=== PATIENT | female | born 1975 | race Caucasian/White ===

== ENCOUNTER → 2017-09-22 | Outpatient (CLI) | payer BC ==
[~2017-09-22] MED LIST: JANUMET 1000 MG1 TA1 PO; KOMBIGLYZE XR 11 TER PO; LANTUS100 U/ML SC; LOPRESSOR 225 MG/TAB PO; TAMBOCOR 1100 MG/TAB PO; VICTOZA6 MG/ML SC
== END ==
LOC: COL.RAD 08:20
DX: K30 Functional dyspepsia (principal)
CPT/HCPCS: A9541

== ENCOUNTER 2018-05-15 15:31 | Emergency (ER) | payer BC ==
[~2018-05-15] VITALS: Ht 175.3 cm; Wt 127.3 kg
[2018-05-15 15:35] VITALS: TEMP 98.5
[2018-05-15] MEDS ORDERED: OMNICEF 300MG300 MG PO (16:06)
[2018-05-15] MEDS ORDERED: DOXYCYCLINE 10100 MG PO (16:06)
[2018-05-15] MEDS ORDERED: REGLAN 5MG T5 MG/TAB PO (16:25)
[2018-05-15] MEDS ORDERED: ZANTAC 300300 MG PO (16:26)
[2018-05-15] MEDS ORDERED: CYMBALTA 60MG60 MG PO (16:26)
[2018-05-15] MEDS ORDERED: CANA300T PO (16:26)
[2018-05-15] MEDS ORDERED: LASIX 20MG TABL20 MG PO (16:26)
[2018-05-15] MEDS ORDERED: BUSPIRONE HCL7.5 MG PO (16:26)
[2018-05-15] MEDS ORDERED: TRESIBA FL200 UNIT/1 SQ (16:27)
[2018-05-15 16:32] VITALS: BP 135/81; PULSE 98
== END 2018-05-15 16:40 | disposition home or self-care (01) ==
LOC: COL.ER 15:31
DX: L03.116 Cellulitis of left lower limb (principal); E10.9 Type 1 diabetes mellitus without complications; Z98.890 Other specified postprocedural states
CPT/HCPCS: J0696

== ENCOUNTER 2019-03-23 08:42 | Day surgery (SDC) | payer BC ==
[~2019-03-23 08:42] MED LIST changes: +BUSPIRONE HCL7.5 MG PO; +CANA300T PO; +CYMBALTA 60MG60 MG PO; +DOXYCYCLINE 10100 MG PO; +LASIX 20MG TABL20 MG PO; +OMNICEF 300MG300 MG PO; +REGLAN 5MG T5 MG/TAB PO; +TRESIBA FL200 UNIT/1 SQ; +ZANTAC 300300 MG PO
--- NOTE | 2019-03-23 09:55 | NUR ---
Patient was admitted to room 5 ambulatory and oriented to room. Gown on. Noted to have open area on the bottom of the left foot distal to the left toe. Area was firm to touch with small crack in the center of calloused area. Dr. Ramirez notified and surgery cancelled. Patient instructed to call to office tomorrow morning to arrange an appointment. Patient dismissed to home accompanied by family.
== END 2019-03-23 09:30 | disposition home or self-care (01) ==
LOC: SDCO 08:42
DX: M72.2 Plantar fascial fibromatosis (principal); M77.32 Calcaneal spur, left foot; M19.90 Unspecified osteoarthritis, unspecified site; I10 Essential (primary) hypertension; E11.9 Type 2 diabetes mellitus without complications; G43.909 Migraine, unspecified, not intractable, without status migrainosus; F32.9 Major depressive disorder, single episode, unspecified; I49.3 Ventricular premature depolarization; K31.84 Gastroparesis; K21.9 Gastro-esophageal reflux disease without esophagitis; E66.01 Morbid (severe) obesity due to excess calories; F41.9 Anxiety disorder, unspecified; Z68.37 Body mass index [BMI] 37.0-37.9, adult; Z90.49 Acquired absence of other specified parts of digestive tract; Z79.4 Long term (current) use of insulin; Z53.8 Procedure and treatment not carried out for other reasons; Z79.899 Other long term (current) drug therapy
CPT/HCPCS: J2250; J3010

== ENCOUNTER → 2019-08-02 | Outpatient (CLI) | payer BC | LOC: MC.RAD 15:26 | DX: Z12.31 Encounter for screening mammogram for malignant neoplasm of breast (principal) ==

== ENCOUNTER → 2019-12-09 | Outpatient (CLI) | payer BC ==
[2019-12-09 08:19] LABS: BASO % 0.3 % (0.0-2.0); EOS # 0.1 (0.0-0.7); EOS % 0.6 % (0-4.0); GRAN # 5.7 (1.4-6.5); GRAN % 71.6 % (42.2-75.2); HEMATOCRIT 45.3 % (37.0-47.0); HEMOGLOBIN 15.1 g/dl (12.5-16.0); LYMPH # 1.8 (1.2-3.4); LYMPH % 22.2 % (20.0-51.0); MEAN CELL VOLUME 88 fl (80.0-100.0); MEAN CORPUSCULAR HEMOGLOBIN 29 pg (27.0-31.0); MEAN CORPUSCULAR HGB CONC 33 g/dl (33.0-37.0); MEAN PLATELET VOLUME 10.1 fl (7.4-10.4); MONO # 0.4 (0.1-0.6); MONO % 4.8 % (1.7-9.3); PLATELET COUNT 149 K/mm3 (130-400); RED BLOOD COUNT 5.17 M/mm3 (4.10-5.30); REDCELL DISTRIBUTION WIDTH-CV 13.2 % (11.5-14.5)
[2019-12-09 09:40] LABS: ALBUMIN 4.1 gm/dL (3.5-5.0); BILIRUBIN,TOTAL 0.5 mg/dL (0.0-1.0); CALCIUM 9.1 mg/dL (8.4-10.2); CREATININE, serum 0.45 (0.52-1.25); POTASSIUM 3.9 mmol/L (3.4-5.0); TOTAL PROTEIN 7.9 gm/dL (6.4-8.2)
== END ==
LOC: COL.LAB 07:50
PROVIDERS: Family Medicine
DX: E87.1 Hypo-osmolality and hyponatremia (principal)

== ENCOUNTER 2020-02-17 15:47 | Emergency (ER) | payer BC ==
[~2020-02-17] VITALS: Ht 175.3 cm; Wt 91.8 kg
[2020-02-17 15:54] VITALS: TEMP 97.8
[2020-02-17 16:21] LABS: COLLECTION METHOD CLEAN CATCH
[2020-02-17 16:26] LABS: BASO % 0.3 % (0.0-2.0); EOS # 0.1 (0.0-0.7); EOS % 0.6 % (0-4.0); GRAN # 7.1 (1.4-6.5); GRAN % 72.3 % (42.2-75.2); HEMOGLOBIN 15.3 g/dl (12.5-16.0); LYMPH # 2.1 (1.2-3.4); LYMPH % 20.8 % (20.0-51.0); MEAN CELL VOLUME 86 fl (80.0-100.0); MEAN CORPUSCULAR HEMOGLOBIN 30 pg (27.0-31.0); MEAN CORPUSCULAR HGB CONC 35 g/dl (33.0-37.0); MONO # 0.6 (0.1-0.6); MONO % 5.7 % (1.7-9.3); PLATELET COUNT 222 K/mm3 (130-400); RED BLOOD COUNT 5.13 M/mm3 (4.10-5.30); REDCELL DISTRIBUTION WIDTH-CV 14.3 % (11.5-14.5)
[2020-02-17 16:42] LABS: MUCOUS Present /lpf; PH 6 (5-8); SQUAMOUS EPITHELIAL 0-2 /hpf; URINE APPEARANCE Hazy; URINE BACTERIA None Seen /hpf; URINE BILIRUBIN Positive (NEGATIVE); URINE BLOOD 2+ (NEGATIVE); URINE COLOR Yellow; URINE GLUCOSE Negative (NEGATIVE); URINE KETONE 2+ (NEGATIVE); URINE LEUKOCYTE ESTERASE Negative (NEGATIVE); URINE NITRATE Negative (NEGATIVE); URINE PROTEIN(semi-quant) 2+ (NEGATIVE); URINE RBC >50 /hpf
[2020-02-17 16:51] LABS: ALANINE AMINOTRANSFERASE 16 U/L (4-34); ALBUMIN 4.3 gm/dL (3.5-5.0); ALKALINE PHOSPHATASE 51 U/L (50-136); ANION GAP 15 mmol/L (7-16); AST,SGOT 21 U/L (15-37); BILIRUBIN,TOTAL 0.8 mg/dL (0.0-1.0); BLOOD UREA NITROGEN 14 mg/dL (7-17); C-REACTIVE PROTEIN 2.3 mg/dL (0.0-0.9); CALCIUM 9.4 mg/dL (8.4-10.2); CARBON DIOXIDE 22 mmol/L (22-30); CHLORIDE 99 mmol/L (98-107); CREATININE, serum 0.54 (0.52-1.25); GLUCOSE 203 mg/dL (74-106); LIPASE 113 U/L (23-300); POTASSIUM 3.1 mmol/L (3.4-5.0); SODIUM 137 mmol/L (137-145); TOTAL PROTEIN 8.4 gm/dL (6.4-8.2)
[2020-02-17 17:14] LABS: TROPONIN-I < 0.012 ng/mL (0.000-0.035)
[2020-02-17] MEDS ORDERED: ZOFRAN 4MG T4 MG/TAB PO (19:04)
[2020-02-17] MEDS ORDERED: K-DUR20 MEQ PO (19:04)
[2020-02-17 20:00] VITALS: BP 118/70; PULSE 78
== END 2020-02-17 20:00 | disposition home or self-care (01) ==
LOC: COL.ER 15:47
PROVIDERS: Emergency Medicine
DX: R10.13 Epigastric pain (principal); E87.6 Hypokalemia; E11.9 Type 2 diabetes mellitus without complications; Z79.4 Long term (current) use of insulin; Z90.710 Acquired absence of both cervix and uterus; Z98.84 Bariatric surgery status
CPT/HCPCS: J2405; J7030; Q9967

== ENCOUNTER 2020-02-18 19:09 | Emergency (ER) | payer BC ==
[~2020-02-18] VITALS: Ht 175.3 cm; Wt 91.8 kg
[~2020-02-18 19:09] MED LIST changes: +K-DUR20 MEQ PO; +ZOFRAN 4MG T4 MG/TAB PO
[2020-02-18 19:30] VITALS: BP 113/77; TEMP 98.6
[2020-02-18 20:24] LABS: BASO % 0.3 % (0.0-2.0); EOS # 0.1 (0.0-0.7); EOS % 1.2 % (0-4.0); GRAN # 4.7 (1.4-6.5); GRAN % 69.9 % (42.2-75.2); HEMATOCRIT 39.6 % (37.0-47.0); HEMOGLOBIN 13.7 g/dl (12.5-16.0); LYMPH # 1.6 (1.2-3.4); MEAN CELL VOLUME 86 fl (80.0-100.0); MEAN CORPUSCULAR HEMOGLOBIN 30 pg (27.0-31.0); MEAN CORPUSCULAR HGB CONC 35 g/dl (33.0-37.0); MONO # 0.3 (0.1-0.6); PLATELET COUNT 197 K/mm3 (130-400); REDCELL DISTRIBUTION WIDTH-CV 14.4 % (11.5-14.5)
[2020-02-18 20:37] LABS: ALBUMIN 3.7 gm/dL (3.5-5.0); BILIRUBIN,TOTAL 0.6 mg/dL (0.0-1.0); CALCIUM 9.1 mg/dL (8.4-10.2); CREATININE, serum 0.45 (0.52-1.25); POTASSIUM 3.5 mmol/L (3.4-5.0); TOTAL PROTEIN 7.4 gm/dL (6.4-8.2)
[2020-02-18 22:07] VITALS: PULSE 82
== END 2020-02-18 22:08 | disposition home or self-care (01) ==
LOC: COL.ER 19:09
PROVIDERS: Physician Assistant
DX: R10.33 Periumbilical pain (principal); E11.9 Type 2 diabetes mellitus without complications; Z79.4 Long term (current) use of insulin; Z90.49 Acquired absence of other specified parts of digestive tract; Z98.890 Other specified postprocedural states
CPT/HCPCS: J2550; J7030

== ENCOUNTER 2020-02-29 18:06 | Inpatient (IN) | payer BC ==
[~2020-02-29] VITALS: Ht 175.3 cm; Wt 88.3 kg
[2020-02-29 18:48] LABS: BASO % 0.1 % (0.0-2.0); EOS # 0.1 (0.0-0.7); EOS % 0.8 % (0-4.0); GRAN # 5.9 (1.4-6.5); GRAN % 76.1 % (42.2-75.2); HEMATOCRIT 37.1 % (37.0-47.0); HEMOGLOBIN 13.3 g/dl (12.5-16.0); LYMPH # 1.3 (1.2-3.4); LYMPH % 16.4 % (20.0-51.0); MEAN CELL VOLUME 84 fl (80.0-100.0); MEAN CORPUSCULAR HEMOGLOBIN 30 pg (27.0-31.0); MEAN CORPUSCULAR HGB CONC 36 g/dl (33.0-37.0); MEAN PLATELET VOLUME 10.5 fl (7.4-10.4); MONO # 0.5 (0.1-0.6); MONO % 6.2 % (1.7-9.3); PLATELET COUNT 203 K/mm3 (130-400); RED BLOOD COUNT 4.44 M/mm3 (4.10-5.30); REDCELL DISTRIBUTION WIDTH-CV 14.8 % (11.5-14.5)
[2020-02-29 18:57] LABS: ALBUMIN 3.5 gm/dL (3.5-5.0); BILIRUBIN,TOTAL 0.9 mg/dL (0.0-1.0); CALCIUM 8.9 mg/dL (8.4-10.2); CREATININE, serum 0.44 (0.52-1.25); TOTAL PROTEIN 7.1 gm/dL (6.4-8.2)
[2020-02-29 19:10] LABS: POTASSIUM 2.3 mmol/L (3.4-5.0)
[2020-02-29 19:30] LABS: MAGNESIUM 1.7 mg/dL (1.6-2.3); PHOSPHOROUS 3.2 mg/dL (2.5-4.5)
[2020-02-29] MEDS ORDERED: CARAFATE 1GM1 G PO (20:28)
[2020-02-29] MEDS ORDERED: PRILOSEC 20MG20 MG PO (20:29)
[2020-02-29] MEDS ORDERED: MAG-OX 400400 MG/TAB PO (20:30)
[2020-02-29] MEDS ORDERED: TOPROL XL 25MG25 MG PO (20:32)
[2020-02-29 21:39] VITALS: BP 138/77; PULSE 67; TEMP 98.2
--- NOTE | 2020-02-29 22:02 | NUR ---
Pt arrived to medical floor from ED. Pt alert and oriented x4. Pt oriented to room and call light. VSS. Complaints of 8/10 upper abdominal pain that pt describes as intermittent pressure. Pt also states she is experiencing nausea at this time. IVF infusing per orders to right AC IV site. Small, depressed, red ulcer to pts right great toe with surrounding erythema. Pt denies any other needs at this time. Call light within reach.
[2020-03-01 00:43] VITALS: BP 118/63; PULSE 70; TEMP 98.3
[2020-03-01 04:00] VITALS: BP 134/61; PULSE 69; TEMP 98.4
--- NOTE | 2020-03-01 06:14 | NUR ---
Pt awake most of the night. PRN phenergan given twice for nausea. PRN dilaudid given twice for upper abdominal pain. IVF infusing per orders to right AC IV. Telemetry on. Pt denies any other needs.
[2020-03-01 07:35] VITALS: BP 125/66; PULSE 66; TEMP 98.3
--- NOTE | 2020-03-01 08:05 | NUR ---
Pt awake and alert this morning, currently NPO, medications were given with sip of water. no C/O pain at this time Pt does have some C/O nausea without vomiting. Shift assessments compleyte, left Pt call light in reach, bed in lowest position.
[2020-03-01 08:39] LABS: CALCIUM 8.2 mg/dL (8.4-10.2); CREATININE, serum 0.45 (0.52-1.25)
[2020-03-01 08:48] LABS: POTASSIUM 2.8 mmol/L (3.4-5.0)
--- NOTE | 2020-03-01 13:05 | NUR ---
Pt has C/O pain 02/02, medications given for relief
--- NOTE | 2020-03-01 13:30 | NUR ---
BOO met with the patient to discuss discharge plan. The patient lives in [place] with her , Rasta ([id number]#[phone]), and children. She reports independence with ADLs and has a showerchair available to her, if needed. The patient's PCP is Dr. Esmer Rivera and she receives her medications at [facility]. She reports no difficulties obtaining her meds. The patient does not have advanced directives and she was not interested in completing a DPOA-HC at this time. The patient plans to return home with her family upon discharge. No additional needs at this time.
[2020-03-01 16:41] VITALS: BP 124/61; PULSE 66; TEMP 97.3
--- NOTE | 2020-03-01 19:10 | NUR ---
Pt resting in the room, has had some C/O pain during the day. EGD completed this morning, post op vitals remained stable.
[2020-03-01 19:24] VITALS: BP 132/63; PULSE 68; TEMP 99
--- NOTE | 2020-03-01 20:13 | NUR ---
Assessment complete at this time. Patient complains of nausea and pain level 6/10 in abdomen. PRN dilaudid 0.25 and phenergan administered for this. Heart sounds are normal/regular and lungs are clear. Bowel sounds are audible in all quadrants but hypoactive. Patient states her last bowel movement was two days ago. Will continue to monitor.
--- NOTE | 2020-03-01 23:00 | NUR ---
Potassium lab 2.8 at this time. Protocol initiated IV route. Will continue to monitor.
[2020-03-02] VITALS (7 sets, daily range): BP systolic 119–143; BP diastolic 55–76; PULSE 63–73; TEMP 97.9–99.6
--- NOTE | 2020-03-02 05:37 | NUR ---
Tonight, we have managed patient's pain with IV dilaudid and replaced potassium with IV potassium. Will recheck potassium level after last bag of fluid. No new concerns, will continue to monitor.
--- NOTE | 2020-03-02 08:41 | NUR ---
Pt awake and alert this morning, no C/O pain at this time, has some C/O nausea. sHIFT ASSESSMENTS COMPLETE, LEFT pT CALL LIGHT IN REACH, BED IN LOWEST POSITION.
[2020-03-02 09:22] LABS: MEAN CELL VOLUME 87 fl (80.0-100.0); MEAN CORPUSCULAR HGB CONC 35 g/dl (33.0-37.0); MEAN PLATELET VOLUME 10.8 fl (7.4-10.4); PLATELET COUNT 136 K/mm3 (130-400); RED BLOOD COUNT 3.69 M/mm3 (4.10-5.30); REDCELL DISTRIBUTION WIDTH-CV 15.1 % (11.5-14.5)
[2020-03-02 09:24] LABS: HEMOGLOBIN 11.1 g/dl (12.5-16.0); MEAN CORPUSCULAR HEMOGLOBIN 30 pg (27.0-31.0)
[2020-03-02 09:39] LABS: ALBUMIN 2.8 gm/dL (3.5-5.0); BILIRUBIN,TOTAL 0.6 mg/dL (0.0-1.0); CALCIUM 8.1 mg/dL (8.4-10.2); CREATININE, serum 0.39 (0.52-1.25); MAGNESIUM 1.4 mg/dL (1.6-2.3); POTASSIUM 3.4 mmol/L (3.4-5.0)
--- NOTE | 2020-03-03 02:28 | NUR ---
Pt assessment completed, charted, alert, oriented, roomair, independent. Meds provided as per SEP, tolerated well. Pt complained of nausea, PRN antiemetic provided. Helped settled on her bed, call light on reach. No further needs at this time.
[2020-03-03 03:51] VITALS: BP 150/73; PULSE 67; TEMP 97.7
--- NOTE | 2020-03-03 06:33 | NUR ---
Pt had an uneventful night, slept through out the night. Morning meds provided as per SEP. No further needs at this time.
[2020-03-03 06:57] LABS: BASO % 0.3 % (0.0-2.0); EOS % 1.1 % (0-4.0); GRAN # 1.7 (1.4-6.5); GRAN % 47.4 % (42.2-75.2); HEMOGLOBIN 11.6 g/dl (12.5-16.0); LYMPH # 1.6 (1.2-3.4); LYMPH % 44.8 % (20.0-51.0); MEAN CELL VOLUME 87 fl (80.0-100.0); MEAN CORPUSCULAR HEMOGLOBIN 30 pg (27.0-31.0); MEAN CORPUSCULAR HGB CONC 34 g/dl (33.0-37.0); MONO # 0.2 (0.1-0.6); MONO % 6.1 % (1.7-9.3); PLATELET COUNT 126 K/mm3 (130-400); RED BLOOD COUNT 3.92 M/mm3 (4.10-5.30)
[2020-03-03 07:13] LABS: ALBUMIN 3.1 gm/dL (3.5-5.0); BILIRUBIN,TOTAL 0.6 mg/dL (0.0-1.0); CALCIUM 8.4 mg/dL (8.4-10.2); CREATININE, serum 0.37 (0.52-1.25); MAGNESIUM 1.3 mg/dL (1.6-2.3); PHOSPHOROUS 2.5 mg/dL (2.5-4.5); POTASSIUM 3.1 mmol/L (3.4-5.0); TOTAL PROTEIN 6.3 gm/dL (6.4-8.2)
[2020-03-03 07:35] LABS: HEMATOCRIT 34.1 % (37.0-47.0)
[2020-03-03 08:01] VITALS: BP 140/69; PULSE 64; TEMP 98.1
--- NOTE | 2020-03-03 08:57 | NUR ---
Patient sitting up on edge of bed attempting to eat breakfast. States she did have nausea after a bite of breakfast. Denies nausea currently. Patient on potassium protocol, states she is not able to tolerate Oral potassium therefore changed to IV KCL. Tele in place. Denies further needs at this time. INT to left AC with fluids infusing per orders. IV covered for shower this AM.
--- NOTE | 2020-03-03 10:06 | NUR ---
Patient showered, tele placed back on patient. No further needs at this time.
--- NOTE | 2020-03-03 11:48 | NUR ---
Patient had emisis after attempting to take PO potassium tab, thinks its due to size of tab. Cut tab to smaller size patient will attempt to take once stomach settles down.
[2020-03-03 11:59] VITALS: BP 150/70; PULSE 68; TEMP 97.6
--- NOTE | 2020-03-03 13:22 | NUR ---
Patient states she was able to take KCL tab. Also tolerating lunch without nausea
[2020-03-03 16:28] VITALS: BP 119/67; PULSE 61; TEMP 98.1
--- NOTE | 2020-03-03 17:50 | NUR ---
Patient has done well throughout the day. Independent in room. Spouse at bedside this afternoon. Denies pain throughout the day. Occassional nausea during meals, not requiring nausea meds. Restarted IV to right forarm due to leaking IV in left AC, x1 attempt. Showered this AM. Denies further needs at this time. Will report off to shift mgr
[2020-03-03 20:16] VITALS: BP 139/71; PULSE 66; TEMP 98.4
--- NOTE | 2020-03-03 20:30 | NUR ---
PT resting in bed, complaining of burning at IV site. This RN flushed the site and no swelling, leaking or bleeding noted. But did note that IV pump was beeping indicating that primary fluid, NS was stopped due to total fluid volume being completed, leaving potassium running on its own; flushed the line with new bag of NS to dilute the potassium. PT stated that it felt much better after doing this. Will continue to monitor.
[2020-03-03 23:43] VITALS: BP 133/61; PULSE 64; TEMP 97.7
[2020-03-04 03:51] VITALS: BP 125/63; PULSE 70; TEMP 97.3
[2020-03-04 07:37] VITALS: BP 143/68; PULSE 79; TEMP 98.1
[2020-03-04 08:27] LABS: BASO % 0.3 % (0.0-2.0); EOS # 0.1 (0.0-0.7); EOS % 1.3 % (0-4.0); GRAN # 1.8 (1.4-6.5); GRAN % 45.4 % (42.2-75.2); HEMOGLOBIN 10.6 g/dl (12.5-16.0); LYMPH # 1.8 (1.2-3.4); MEAN CELL VOLUME 87 fl (80.0-100.0); MEAN CORPUSCULAR HEMOGLOBIN 30 pg (27.0-31.0); MEAN CORPUSCULAR HGB CONC 34 g/dl (33.0-37.0); MEAN PLATELET VOLUME 11.3 fl (7.4-10.4); MONO # 0.3 (0.1-0.6); MONO % 7.7 % (1.7-9.3); PLATELET COUNT 126 K/mm3 (130-400); RED BLOOD COUNT 3.56 M/mm3 (4.10-5.30)
[2020-03-04 08:49] LABS: ANION GAP 7 mmol/L (7-16); CALCIUM 7.8 mg/dL (8.4-10.2); CARBON DIOXIDE 31 mmol/L (22-30); CHLORIDE 97 mmol/L (98-107); CREATININE, serum 0.35 (0.52-1.25); GLUCOSE 135 mg/dL (74-106); MAGNESIUM 1.6 mg/dL (1.6-2.3); SODIUM 135 mmol/L (137-145)
[2020-03-04 08:51] LABS: BLOOD UREA NITROGEN < 2 mg/dL (7-17); POTASSIUM 2.8 mmol/L (3.4-5.0)
--- NOTE | 2020-03-04 11:18 | NUR ---
CARE HANDED OFF TO LATRICE DURAND @ 6205. BEDSIDE
[2020-03-04 11:52] VITALS: BP 133/75; PULSE 69; TEMP 98.1
--- NOTE | 2020-03-04 12:38 | NUR ---
Patient sitting up in bed watching TV. Had previous reports of nausea, which has resolved. A&Ox3. VSS. IV CDI, potassium infusing. Patient reporting burning at IV site r/t infusion. Nurse aware and IV mode adjusted. No further needs expressed from patient. Call light within reach.
[2020-03-04 14:06] LABS: ANION GAP 7 mmol/L (7-16); BLOOD UREA NITROGEN < 2 mg/dL (7-17); CALCIUM 8.1 mg/dL (8.4-10.2); CARBON DIOXIDE 31 mmol/L (22-30); CHLORIDE 95 mmol/L (98-107); CREATININE, serum 0.35 (0.52-1.25); GLUCOSE 188 mg/dL (74-106); POTASSIUM 3.6 mmol/L (3.4-5.0); SODIUM 133 mmol/L (137-145)
[2020-03-04] MEDS ORDERED: PHENERGAN 25 TA25 MG PO (15:29)
[2020-03-04] MEDS ORDERED: BACTRIM DS 8001 TAB PO (15:30)
[2020-03-04] MEDS ORDERED: ZOFRAN ODT4 MG PO (15:31)
[2020-03-04] MEDS ORDERED: K-TAB20 PO (15:33)
[2020-03-04 16:51] VITALS: BP 134/76; PULSE 71; TEMP 97.4
--- NOTE | 2020-03-04 17:11 | NUR ---
Discharge paperwork reviewed with patient. Patient verbalized an understanding to follow doctors orders. IV removed, tip intact. Gauze and coban applied, patient tolerated well. Patient voiced concerns about feeling like she was "drunk" when she got up and sat back down. Nurse informed/encouraged patient to increase PO intake of water and food, going home and relaxing/resting as much as possible and to get up slowly and take her time moving around. Patient verbalized an understanding. No further needs expressed from the patient. Patient transfered by wheelchair to vehicle outside. Personal belongings and discharge paperwork with patient.
== END 2020-03-04 17:00 | disposition home or self-care (01) | DRG 392 ==
LOC: COL.ER 18:06 → MEDICAL 20:16
PROVIDERS: Internal Medicine Gastroenterology; Physician Assistant; ADMIT Family Medicine
PROC: 0DJ08ZZ Inspection of Upper Intestinal Tract, Via Natural or Artificial Opening Endoscopic (ICD-10-PCS; principal; 2020-03-01 11:00)
DX: R10.13 Epigastric pain (principal); E86.0 Dehydration; K27.9 Peptic ulcer, site unspecified, unspecified as acute or chronic, without hemorrhage or perforation; E11.622 Type 2 diabetes mellitus with other skin ulcer; L97.519 Non-pressure chronic ulcer of other part of right foot with unspecified severity; L03.031 Cellulitis of right toe; R63.0 Anorexia; K21.0 Gastro-esophageal reflux disease with esophagitis; K28.7 Chronic gastrojejunal ulcer without hemorrhage or perforation; Z90.49 Acquired absence of other specified parts of digestive tract; Z98.84 Bariatric surgery status; Z98.51 Tubal ligation status
CPT/HCPCS: 99233-AI; 99239; C9113; G0378; J1170; J1815; J2405; J2550; J2704; J3475; J3480; J7030

== ENCOUNTER 2020-03-09 14:28 | Outpatient (CLI) | payer BC ==
[~2020-03-09] VITALS: Ht 175.3 cm; Wt 86.2 kg
[~2020-03-09 14:28] MED LIST changes: +BACTRIM DS 8001 TAB PO; +CARAFATE 1GM1 G PO; +K-TAB20 PO; +MAG-OX 400400 MG/TAB PO; +PHENERGAN 25 TA25 MG PO; +PRILOSEC 20MG20 MG PO; +TOPROL XL 25MG25 MG PO; +ZOFRAN ODT4 MG PO
[2020-03-09 15:00] VITALS: BP 127/65; PULSE 93; TEMP 97.7
[2020-03-09 16:54] LABS: ALBUMIN 3.4 gm/dL (3.5-5.0); BILIRUBIN,TOTAL 0.7 mg/dL (0.0-1.0); CALCIUM 8.9 mg/dL (8.4-10.2); CREATININE, serum 0.63 (0.52-1.25); MAGNESIUM 1.9 mg/dL (1.6-2.3); POTASSIUM 4.9 mmol/L (3.4-5.0); TOTAL PROTEIN 6.9 gm/dL (6.4-8.2)
== END 2020-03-09 17:58 | disposition home or self-care (01) ==
LOC: EUO 14:28
PROVIDERS: Family Medicine
DX: Z01.89 Encounter for other specified special examinations (principal)
CPT/HCPCS: J7030

== ENCOUNTER → 2020-03-12 | Outpatient (CLI) | payer BC ==
[~2020-03-12] VITALS: Ht 175.3 cm; Wt 86.9 kg
[2020-03-12 14:53] VITALS: BP 108/70; PULSE 100
== END ==
LOC: DIA.ED 10:29 → LIGHT 10:29
DX: E66.8 Other obesity (principal); Z98.84 Bariatric surgery status; E11.9 Type 2 diabetes mellitus without complications
CPT/HCPCS: G0463

== ENCOUNTER → 2020-03-16 | Outpatient (CLI) | payer BC | LOC: COL.RAD 08:53 | DX: R11.10 Vomiting, unspecified (principal); R10.9 Unspecified abdominal pain; Z98.84 Bariatric surgery status ==

== ENCOUNTER 2020-03-22 15:18 | Emergency (ER) | payer BC ==
[~2020-03-22] VITALS: Ht 175.3 cm; Wt 89.5 kg
[2020-03-22 15:24] VITALS: TEMP 97.7
[2020-03-22 16:30] LABS: BASO % 0.4 % (0.0-2.0); EOS # 0.1 (0.0-0.7); EOS % 0.9 % (0-4.0); GRAN # 4.5 (1.4-6.5); GRAN % 57.1 % (42.2-75.2); HEMATOCRIT 34.3 % (37.0-47.0); HEMOGLOBIN 11.3 g/dl (12.5-16.0); LYMPH % 37.3 % (20.0-51.0); MEAN CELL VOLUME 93 fl (80.0-100.0); MEAN CORPUSCULAR HEMOGLOBIN 31 pg (27.0-31.0); MEAN CORPUSCULAR HGB CONC 33 g/dl (33.0-37.0); MEAN PLATELET VOLUME 11.2 fl (7.4-10.4); MONO # 0.3 (0.1-0.6); MONO % 3.8 % (1.7-9.3); PLATELET COUNT 189 K/mm3 (130-400); RED BLOOD COUNT 3.68 M/mm3 (4.10-5.30); REDCELL DISTRIBUTION WIDTH-CV 17.1 % (11.5-14.5)
[2020-03-22] MEDS ORDERED: REGLAN 5MG T5 MG/TAB PO (16:33)
[2020-03-22 16:44] LABS: ALBUMIN 3.2 gm/dL (3.5-5.0); BILIRUBIN,TOTAL 0.4 mg/dL (0.0-1.0); CALCIUM 8.5 mg/dL (8.4-10.2); CREATININE, serum 0.91 (0.52-1.25); MAGNESIUM 1.8 mg/dL (1.6-2.3); POTASSIUM 4.3 mmol/L (3.4-5.0); TOTAL PROTEIN 6.5 gm/dL (6.4-8.2)
[2020-03-22] MEDS ORDERED: ATIVAN 0.50.5 MG/TAB PO (18:09)
[2020-03-22 18:42] VITALS: BP 116/80; PULSE 76
== END 2020-03-22 18:42 | disposition home or self-care (01) ==
LOC: COL.ER 15:18
PROVIDERS: Emergency Medicine
DX: M62.838 Other muscle spasm (principal); E11.9 Type 2 diabetes mellitus without complications; Z98.84 Bariatric surgery status; Z79.84 Long term (current) use of oral hypoglycemic drugs
CPT/HCPCS: J2060

== ENCOUNTER → 2020-09-13 | Outpatient (CLI) | payer BC ==
[~2020-09-13] MED LIST changes: +ATIVAN 0.50.5 MG/TAB PO
== END ==
LOC: MC.RAD 16:33
DX: Z12.31 Encounter for screening mammogram for malignant neoplasm of breast (principal)

== ENCOUNTER 2021-06-25 08:30 | Outpatient (RCR) | payer BC ==
[2021-05-14] VITALS (7 sets, daily range): BP systolic 125–139; BP diastolic 74–84; PULSE 72–80; TEMP 98.2
[2021-05-14 11:43] LABS: BASO % 0.4 % (0.0-2.0); EOS # 0.1 K/mm3 (0.0-0.7); EOS % 0.8 % (0-4.0); GRAN # 5.6 K/mm3 (1.4-6.5); GRAN % 62.5 % (42.2-75.2); HEMOGLOBIN 11.9 g/dl (12.5-16.0); LYMPH # 2.8 K/mm3 (1.2-3.4); LYMPH % 31.7 % (20.0-51.0); MEAN CELL VOLUME 93 fl (80.0-100.0); MEAN CORPUSCULAR HEMOGLOBIN 32 pg (27.0-31.0); MEAN CORPUSCULAR HGB CONC 34 g/dl (33.0-37.0); MEAN PLATELET VOLUME 10.3 fl (7.4-10.4); MONO # 0.3 K/mm3 (0.1-0.6); MONO % 3.6 % (1.7-9.3); PLATELET COUNT 218 K/mm3 (130-400); RED BLOOD COUNT 3.77 M/mm3 (4.10-5.30); REDCELL DISTRIBUTION WIDTH-CV 13.2 % (11.5-14.5)
[2021-05-14 11:46] LABS: HEMATOCRIT 34.9 % (37.0-47.0)
[2021-05-14 11:56] LABS: ALBUMIN 3.1 gm/dL (3.5-5.0); BILIRUBIN,TOTAL 0.3 mg/dL (0.2-1.2); C-REACTIVE PROTEIN 0.3 mg/dL (0.00-0.50); CALCIUM 8.5 mg/dL (8.4-10.2); CREATININE, serum 0.65 mg/dL (0.57-1.11); TOTAL PROTEIN 6.3 gm/dL (6.2-8.1)
[2021-05-14 12:11] LABS: ERYTHROCYTE SEDIMENTATION RATE 24 mm/hr (0-20)
--- NOTE | 2021-05-14 13:15 | NUR ---
PICC intact right upper arm with sterile dressing change done due to moderate amount of reddish drainage noted. no further drainage noted.
--- NOTE | 2021-05-14 15:25 | NUR ---
Itching resolved following 25mg of benadryl. Pt had c/o mild nausea. It resolved after eating some crackers, and she has denied need for nausea medication. She's continued to deny respiratory symptoms, and respirations remain even and unlabored. No rash or hives noted. Home treatment with PO benadryl discussed with pt for breakthrough symptoms, as well as ED return precautions if symptoms worsen or are uncontrolled. She expresses understanding. Gait steady in room. She is able to ambulate out from dept with steady gait. She will return tomorrow for dressing change, PICC dressing is currently clean, dry and intact, and for initial dose of next abx perscribed.
[2021-05-15 10:50] LABS: BASO % 0.4 % (0.0-2.0); EOS # 0.1 K/mm3 (0.0-0.7); GRAN # 3.7 K/mm3 (1.4-6.5); GRAN % 52.2 % (42.2-75.2); HEMOGLOBIN 12.4 g/dl (12.5-16.0); LYMPH % 41.7 % (20.0-51.0); MEAN CELL VOLUME 93 fl (80.0-100.0); MEAN CORPUSCULAR HEMOGLOBIN 31 pg (27.0-31.0); MEAN CORPUSCULAR HGB CONC 34 g/dl (33.0-37.0); MEAN PLATELET VOLUME 10.4 fl (7.4-10.4); MONO # 0.3 K/mm3 (0.1-0.6); MONO % 4.4 % (1.7-9.3); PLATELET COUNT 210 K/mm3 (130-400); RED BLOOD COUNT 3.98 M/mm3 (4.10-5.30); REDCELL DISTRIBUTION WIDTH-CV 13.1 % (11.5-14.5)
[2021-05-15 10:53] LABS: HEMATOCRIT 36.8 % (37.0-47.0)
[2021-05-15 11:01] LABS: ALBUMIN 3.1 gm/dL (3.5-5.0); BILIRUBIN,TOTAL 0.3 mg/dL (0.2-1.2); CALCIUM 8.9 mg/dL (8.4-10.2); CREATININE, serum 0.63 mg/dL (0.57-1.11); POTASSIUM 4.2 mmol/L (3.5-4.5); TOTAL PROTEIN 6.4 gm/dL (6.2-8.1)
[2021-05-15 11:02] VITALS: BP 127/85; PULSE 72; TEMP 98.5
[2021-05-15 11:14] LABS: ERYTHROCYTE SEDIMENTATION RATE 14 mm/hr (0-20)
--- NOTE | 2021-05-15 12:22 | NUR ---
Pt reports symptoms of itching are 'getting better."
[2021-05-21 08:19] VITALS: BP 126/74; PULSE 70; TEMP 98.2
[2021-05-21 08:31] LABS: BASO % 0.5 % (0.0-2.0); EOS # 0.1 K/mm3 (0.0-0.7); GRAN # 3.9 K/mm3 (1.4-6.5); GRAN % 64.9 % (42.2-75.2); HEMOGLOBIN 12.3 g/dl (12.5-16.0); LYMPH # 1.6 K/mm3 (1.2-3.4); LYMPH % 27.2 % (20.0-51.0); MEAN CELL VOLUME 93 fl (80.0-100.0); MEAN CORPUSCULAR HEMOGLOBIN 32 pg (27.0-31.0); MEAN CORPUSCULAR HGB CONC 34 g/dl (33.0-37.0); MEAN PLATELET VOLUME 10.4 fl (7.4-10.4); MONO # 0.3 K/mm3 (0.1-0.6); MONO % 5.1 % (1.7-9.3); PLATELET COUNT 209 K/mm3 (130-400)
--- NOTE | 2021-05-21 08:40 | NUR ---
Here for PICC cares. micro bore tubing present with no cap on end just a green end cap present. patient reported that she cleanses the hub with an alcohol swab prior to flushing. concern that this is not a closed system and risk of infection. she reports "no caps were sent with supplies." advised to bring micro bore tubing with her when she comes for cares. refused to have a macro bore tubing applied. cap given and instructed on how to flush it before leslie on the end of tubing. sterile PICC dressing change done. voiced understanding of instructions. to return next week for cares. voiced understanding of instructions.
[2021-05-21 08:42] LABS: HEMATOCRIT 36.4 % (37.0-47.0)
[2021-05-21 08:46] LABS: ALBUMIN 3.2 gm/dL (3.5-5.0); BILIRUBIN,TOTAL 0.4 mg/dL (0.2-1.2); CALCIUM 8.6 mg/dL (8.4-10.2); CREATININE, serum 0.7 mg/dL (0.57-1.11); POTASSIUM 4.3 mmol/L (3.5-4.5); TOTAL PROTEIN 6.7 gm/dL (6.2-8.1)
[2021-05-21 09:24] LABS: ERYTHROCYTE SEDIMENTATION RATE 12 mm/hr (0-20)
[2021-05-28 08:19] LABS: BASO # 0.1 K/mm3 (0.0-0.2); BASO % 0.7 % (0.0-2.0); EOS # 0.1 K/mm3 (0.0-0.7); EOS % 1.1 % (0-4.0); GRAN # 4.4 K/mm3 (1.4-6.5); GRAN % 62.3 % (42.2-75.2); HEMATOCRIT 34.5 % (37.0-47.0); HEMOGLOBIN 11.7 g/dl (12.5-16.0); LYMPH # 2.2 K/mm3 (1.2-3.4); LYMPH % 30.9 % (20.0-51.0); MEAN CELL VOLUME 94 fl (80.0-100.0); MEAN CORPUSCULAR HEMOGLOBIN 32 pg (27.0-31.0); MEAN CORPUSCULAR HGB CONC 34 g/dl (33.0-37.0); MEAN PLATELET VOLUME 10.6 fl (7.4-10.4); MONO # 0.3 K/mm3 (0.1-0.6); MONO % 4.7 % (1.7-9.3); PLATELET COUNT 158 K/mm3 (130-400); RED BLOOD COUNT 3.69 M/mm3 (4.10-5.30); REDCELL DISTRIBUTION WIDTH-CV 13.2 % (11.5-14.5)
[2021-05-28 08:20] VITALS: BP 144/76; PULSE 63; TEMP 98.2
[2021-05-28 08:35] LABS: BILIRUBIN,TOTAL 0.3 mg/dL (0.2-1.2); CALCIUM 8.4 mg/dL (8.4-10.2); CREATININE, serum 0.67 mg/dL (0.57-1.11); POTASSIUM 3.9 mmol/L (3.5-4.5); TOTAL PROTEIN 6.4 gm/dL (6.2-8.1)
[2021-05-28 08:48] LABS: ERYTHROCYTE SEDIMENTATION RATE 14 mm/hr (0-20)
[2021-06-04 08:27] VITALS: BP 101/78; PULSE 82; TEMP 98.2
[2021-06-04 08:43] LABS: BASO % 0.4 % (0.0-2.0); EOS # 0.2 K/mm3 (0.0-0.7); GRAN % 67.2 % (42.2-75.2); HEMATOCRIT 39.2 % (37.0-47.0); HEMOGLOBIN 13.1 g/dl (12.5-16.0); LYMPH # 1.9 K/mm3 (1.2-3.4); LYMPH % 25.1 % (20.0-51.0); MEAN CELL VOLUME 93 fl (80.0-100.0); MEAN CORPUSCULAR HEMOGLOBIN 31 pg (27.0-31.0); MEAN CORPUSCULAR HGB CONC 33 g/dl (33.0-37.0); MEAN PLATELET VOLUME 10.7 fl (7.4-10.4); MONO # 0.4 K/mm3 (0.1-0.6); PLATELET COUNT 173 K/mm3 (130-400); RED BLOOD COUNT 4.22 M/mm3 (4.10-5.30); REDCELL DISTRIBUTION WIDTH-CV 13.6 % (11.5-14.5)
[2021-06-04 08:58] LABS: ALBUMIN 3.1 gm/dL (3.5-5.0); BILIRUBIN,TOTAL 0.4 mg/dL (0.2-1.2); CALCIUM 9.3 mg/dL (8.4-10.2); CREATININE, serum 0.75 mg/dL (0.57-1.11); POTASSIUM 4.1 mmol/L (3.5-4.5); TOTAL PROTEIN 7.2 gm/dL (6.2-8.1)
[2021-06-04 09:22] LABS: ERYTHROCYTE SEDIMENTATION RATE 24 mm/hr (0-20)
[2021-06-11 08:20] VITALS: BP 121/80; PULSE 80; TEMP 98.6
[2021-06-11 08:32] LABS: BASO # 0.1 K/mm3 (0.0-0.2); BASO % 0.8 % (0.0-2.0); EOS # 0.1 K/mm3 (0.0-0.7); EOS % 2.1 % (0-4.0); GRAN # 4.4 K/mm3 (1.4-6.5); GRAN % 68.8 % (42.2-75.2); HEMATOCRIT 39.7 % (37.0-47.0); HEMOGLOBIN 13.7 g/dl (12.5-16.0); LYMPH # 1.5 K/mm3 (1.2-3.4); LYMPH % 23.5 % (20.0-51.0); MEAN CELL VOLUME 92 fl (80.0-100.0); MEAN CORPUSCULAR HEMOGLOBIN 32 pg (27.0-31.0); MEAN CORPUSCULAR HGB CONC 35 g/dl (33.0-37.0); MEAN PLATELET VOLUME 10.9 fl (7.4-10.4); MONO # 0.3 K/mm3 (0.1-0.6); MONO % 4.6 % (1.7-9.3); PLATELET COUNT 206 K/mm3 (130-400); RED BLOOD COUNT 4.34 M/mm3 (4.10-5.30); REDCELL DISTRIBUTION WIDTH-CV 12.9 % (11.5-14.5)
[2021-06-11 08:49] LABS: ALBUMIN 3.3 gm/dL (3.5-5.0); BILIRUBIN,TOTAL 0.4 mg/dL (0.2-1.2); CALCIUM 9.5 mg/dL (8.4-10.2); CREATININE, serum 0.83 mg/dL (0.57-1.11); POTASSIUM 4.5 mmol/L (3.5-4.5); TOTAL PROTEIN 7.4 gm/dL (6.2-8.1)
[2021-06-11 08:54] LABS: ERYTHROCYTE SEDIMENTATION RATE 15 mm/hr (0-20)
[2021-06-18 08:32] VITALS: BP 136/91; PULSE 83; TEMP 97.7
[2021-06-18 08:44] LABS: BASO % 0.7 % (0.0-2.0); EOS # 0.1 K/mm3 (0.0-0.7); EOS % 1.7 % (0-4.0); GRAN # 3.2 K/mm3 (1.4-6.5); GRAN % 54.8 % (42.2-75.2); HEMOGLOBIN 13.9 g/dl (12.5-16.0); LYMPH # 2.3 K/mm3 (1.2-3.4); LYMPH % 38.3 % (20.0-51.0); MEAN CELL VOLUME 88 fl (80.0-100.0); MEAN CORPUSCULAR HEMOGLOBIN 32 pg (27.0-31.0); MEAN CORPUSCULAR HGB CONC 36 g/dl (33.0-37.0); MEAN PLATELET VOLUME 10.7 fl (7.4-10.4); MONO # 0.3 K/mm3 (0.1-0.6); MONO % 4.3 % (1.7-9.3); PLATELET COUNT 188 K/mm3 (130-400); RED BLOOD COUNT 4.41 M/mm3 (4.10-5.30); REDCELL DISTRIBUTION WIDTH-CV 12.6 % (11.5-14.5)
[2021-06-18 08:55] LABS: ALBUMIN 3.3 gm/dL (3.5-5.0); BILIRUBIN,TOTAL 0.4 mg/dL (0.2-1.2); CALCIUM 9.4 mg/dL (8.4-10.2); CREATININE, serum 0.74 mg/dL (0.57-1.11); POTASSIUM 4.4 mmol/L (3.5-4.5); TOTAL PROTEIN 7.1 gm/dL (6.2-8.1)
[2021-06-18 09:03] LABS: ERYTHROCYTE SEDIMENTATION RATE 7 mm/hr (0-20)
[~2021-06-25] VITALS: Ht 175.3 cm; Wt 91.4 kg
[2021-06-25 08:14] VITALS: BP 137/83; PULSE 75; TEMP 98.5
[2021-06-25 08:27] LABS: BASO % 0.7 % (0.0-2.0); EOS # 0.1 K/mm3 (0.0-0.7); EOS % 1.3 % (0-4.0); GRAN # 3.7 K/mm3 (1.4-6.5); HEMATOCRIT 38.4 % (37.0-47.0); HEMOGLOBIN 13.3 g/dl (12.5-16.0); LYMPH % 33.1 % (20.0-51.0); MEAN CELL VOLUME 90 fl (80.0-100.0); MEAN CORPUSCULAR HEMOGLOBIN 31 pg (27.0-31.0); MEAN CORPUSCULAR HGB CONC 35 g/dl (33.0-37.0); MEAN PLATELET VOLUME 10.7 fl (7.4-10.4); MONO # 0.3 K/mm3 (0.1-0.6); MONO % 4.7 % (1.7-9.3); PLATELET COUNT 157 K/mm3 (130-400); RED BLOOD COUNT 4.28 M/mm3 (4.10-5.30); REDCELL DISTRIBUTION WIDTH-CV 12.6 % (11.5-14.5)
[~2021-06-25 08:30] MED LIST changes: +COMPLETE MULTI1 TAB PO; +CUBICIN 500MG500 MG IV; +TOPROL XL 50MG50 MG PO; +VANCO 1.51.5 GM/250 IV; +VITAMIN D31000 I1 PO; +VITAMIN E 400 U4001 PO; +VITAMINC1000TA PO; +ZOSYN 4 GM-0.51 PD1 IV
[2021-06-25 08:46] LABS: ALBUMIN 3.3 gm/dL (3.5-5.0); BILIRUBIN,TOTAL 0.4 mg/dL (0.2-1.2); CALCIUM 8.7 mg/dL (8.4-10.2); CREATININE, serum 0.69 mg/dL (0.57-1.11); POTASSIUM 4.3 mmol/L (3.5-4.5); TOTAL PROTEIN 6.9 gm/dL (6.2-8.1)
[2021-06-25 09:00] LABS: ERYTHROCYTE SEDIMENTATION RATE 13 mm/hr (0-20)
--- NOTE | 2021-06-25 09:07 | NUR ---
Dressing remains clean, dry and intact to rt upper arm after PICC removal. Pt free of complaints. She ambulates out from dept with steady gait.
== END 2021-06-25 09:21 | disposition still patient (30) ==
LOC: EUO 08:30
PROVIDERS: Student in an Organized Health Care Education/Training Program
DX: Z45.2 Encounter for adjustment and management of vascular access device (principal); L08.9 Local infection of the skin and subcutaneous tissue, unspecified; L97.509 Non-pressure chronic ulcer of other part of unspecified foot with unspecified severity
CPT/HCPCS: C1751; J0878; J1200; J2543; J3370; J7050

== ENCOUNTER → 2021-08-28 | Outpatient (CLI) | payer BC ==
[2021-08-28 14:34] LABS: ALBUMIN 3.3 gm/dL (3.5-5.0); BILIRUBIN,TOTAL 0.4 mg/dL (0.2-1.2); C-REACTIVE PROTEIN 3.1 mg/dL (0.00-0.50); CALCIUM 8.7 mg/dL (8.4-10.2); CREATININE, serum 0.67 mg/dL (0.57-1.11); POTASSIUM 4.9 mmol/L (3.5-4.5); TOTAL PROTEIN 7.4 gm/dL (6.2-8.1)
== END ==
LOC: ZCOL.LAB 13:09
PROVIDERS: Family Medicine
DX: E11.621 Type 2 diabetes mellitus with foot ulcer (principal); L97.412 Non-pressure chronic ulcer of right heel and midfoot with fat layer exposed

== ENCOUNTER → 2021-09-10 | Outpatient (CLI) | payer BC | LOC: COL.RAD 10:24 | DX: M86.171 Other acute osteomyelitis, right ankle and foot (principal); S90.921A Unspecified superficial injury of right foot, initial encounter | CPT/HCPCS: A9575 ==

== ENCOUNTER 2022-10-09 14:53 | Outpatient (RCR) | payer BC | END 2022-10-24 | disposition home or self-care (01) | LOC: MKS.ESL.PT | DX: R26.81 Unsteadiness on feet (principal) ==